=== PATIENT | male | born 1950 | race Caucasian/White ===

== ENCOUNTER 2023-04-17 17:09 | Inpatient (IN) ==
[2023-04-17] MEDS ORDERED: LEVOFLOXACIN 750 MG/150 ML BAG IV ONE (17:23)
[2023-04-17 17:31] LABS: POC Calcium, Ionized 1.21 (1.16-1.32); POC Creatinine 0.8 (0.6-1.2); POC Potassium 4.5 (3.3-5.1)
[2023-04-17] MEDS ORDERED: LORazepam 2 MG/ML VIAL IV ONE (17:34)
[2023-04-17 18:19] LABS: Basophils # (Auto) 0.19 K/mcL (0.00-0.30); Basophils % (Auto) 1.2 % (0.0-2.0); Eosinophils # (Auto) 1.43 K/mcL (0.00-0.70); Eosinophils % (Auto) 9.4 % (0.0-7.0); Hematocrit 42.8 % (40.1-51.0); Hemoglobin 13.5 g/dL (13.7-17.5); Lymphocytes # (Auto) 5.06 K/mcL (1.50-4.80); Lymphocytes % (Auto) 33.2 % (15.5-49.0); Mean Cell Volume 91.5 fL (80.0-100.0); Mean Corpuscular HGB Conc 31.5 g/dL (31.0-36.0); Monocytes # (Auto) 1.55 K/mcL (0.10-0.90); Monocytes % (Auto) 10.2 % (1.0-12.0); Neutrophils % (Auto) 45.7 % (38.0-78.0); Platelet Count 257 K/mcL (140-440); RBC 4.68 M/mcL (4.63-6.08); Red Cell Distribution Width 13.9 % (11.5-14.5); WBC 15.3 K/mcL (4.5-11.0)
[2023-04-17] MEDS ORDERED: ALBUTEROL SULFATE 2.5 MG/3 ML NEBULIZER NEB ONE (18:49)
[2023-04-17] MEDS ORDERED: DEXTROSE 50% 50 ML VIAL IV PRN (19:52)
[2023-04-17] MEDS ORDERED: POLYETHYLENE GLYCOL 3350 17 GM PACKET PO PRN (19:52)
[2023-04-17] MEDS ORDERED: ONDANSETRON 4 MG/2 ML VIAL IV PRN (19:52)
[2023-04-17] MEDS ORDERED: SENNOSIDES 1 TABLET PO PRN (19:52)
[2023-04-17] MEDS ORDERED: POTASSIUM CHLORIDE 20 MEQ TABLET PO PRN ×2 (19:52)
[2023-04-17] MEDS ORDERED: DEXTROSE 31 GM ORAL.SUSP PO PRN (19:52)
[2023-04-17] MEDS ORDERED: IPRATROPIUM/ALBUTEROL 3 ML AMPUL.NEB NEB PRN (19:52)
[2023-04-17] MEDS ORDERED: MAGNESIUM SULFATE 2 GM/50 ML BAG IV PRN (19:52)
[2023-04-17] MEDS ORDERED: ACETAMINOPHEN 325 MG TABLET PO PRN (19:52)
[2023-04-17] MEDS ORDERED: POTASSIUM CHLORIDE 40 MEQ in DEXTROSE 5% IN WATER 500 ML IV PRN (19:52)
[2023-04-17] MEDS: BUDESONIDE 0.5 MG/2 ML AMPUL.NEB NEB SCH (20:11)
[2023-04-17] MEDS ORDERED: AZITHROMYCIN 250 MG TABLET PO SCH (20:15)
[2023-04-17] MEDS ORDERED: DOCUSATE SODIUM 100 MG CAPSULE PO SCH (21:00)
[2023-04-17] MEDS: methylPREDNISolone SOD SUCC 125 MG/2 ML VIAL IV SCH (21:26)
[2023-04-17] MEDS: INSULIN LISPRO 1 UNIT/0.01 ML UNIT SQ SCH (21:28)
[2023-04-18] MEDS: methylPREDNISolone SOD SUCC 125 MG/2 ML VIAL IV SCH ×4 (00:33→21:13)
[2023-04-18] MEDS: IPRATROPIUM/ALBUTEROL 3 ML AMPUL.NEB NEB SCH ×4 (01:08→19:09)
[2023-04-18 06:08] LABS: Basophils # (Auto) 0.01 K/mcL (0.00-0.30); Basophils % (Auto) 0.1 % (0.0-2.0); Eosinophils # (Auto) 0 K/mcL (0.00-0.70); Eosinophils % (Auto) 0 % (0.0-7.0); Hematocrit 39.3 % (40.1-51.0); Hemoglobin 12.4 g/dL (13.7-17.5); Lymphocytes # (Auto) 0.73 K/mcL (1.50-4.80); Lymphocytes % (Auto) 10.1 % (15.5-49.0); Mean Cell Volume 89.5 fL (80.0-100.0); Mean Corpuscular HGB Conc 31.6 g/dL (31.0-36.0); Mean Platelet Volume 9.7 fL (8.8-12.5); Monocytes # (Auto) 0.08 K/mcL (0.10-0.90); Monocytes % (Auto) 1.1 % (1.0-12.0); Neutrophils % (Auto) 88.3 % (38.0-78.0); Platelet Count 233 K/mcL (140-440); RBC 4.39 M/mcL (4.63-6.08); Red Cell Distribution Width 13.8 % (11.5-14.5); WBC 7.2 K/mcL (4.5-11.0)
[2023-04-18 06:28] LABS: ALT/SGPT 7 U/L (<40); AST/SGOT 8 U/L (<40); Albumin/Globulin Ratio 1.5 (1.0-2.3); Alkaline Phosphatase 70 U/L (39-117); Bilirubin,Direct < 0.2 mg/dL (0-0.3); Bilirubin,Total 0.3 mg/dL (0.1-1.0); Blood Urea Nitrogen 26 mg/dL (8-23); Calcium 9.3 mg/dL (8.6-10.4); Carbon Dioxide 24 mmol/L (22-30); Chloride 106 mmol/L (96-108); Globulin 2.6 gm/dL (2.2-3.7); Glomerular Filtration Rate 88; Glucose 159 mg/dL (70-105); Lactate Dehydrogenase 87 U/L (135-225); Phosphorous 4.3 mg/dL (2.5-4.5); Triglycerides 41 mg/dL (<150); Uric Acid 5.6 mg/dL (2.5-8.0)
[2023-04-18] MEDS: BUDESONIDE 0.5 MG/2 ML AMPUL.NEB NEB SCH ×2 (07:05→19:09)
[2023-04-18] MEDS ORDERED: hydrOXYzine 25 MG TABLET PO PRN (07:30)
[2023-04-18] MEDS: INSULIN LISPRO 1 UNIT/0.01 ML UNIT SQ SCH ×4 (07:34→21:12)
[2023-04-18] MEDS: HYDROcodone/APAP 10/325MG TABLET PO SCH ×3 (08:21→21:13)
[2023-04-18] MEDS: ASPIRIN 81 MG TAB.CHEW PO SCH (08:21)
[2023-04-18] MEDS: LEVOFLOXACIN 750 MG TABLET PO SCH (08:21)
[2023-04-18] MEDS: ENOXAPARIN 40 MG/0.4 ML SYRINGE SQ SCH (08:21)
[2023-04-18] MEDS: FINASTERIDE 5 MG TABLET PO SCH (08:21)
[2023-04-18] MEDS ORDERED: AZITHROMYCIN 250 MG TABLET PO SCH (09:00)
[2023-04-18] MEDS ORDERED: fentaNYL 12 MCG PATCH TOPICAL SCH (10:00)
[2023-04-18] MEDS ORDERED: fentaNYL 25 MCG PATCH TOPICAL SCH (10:00)
[2023-04-18] MEDS: OMEPRAZOLE 20 MG CAPSULE PO SCH (10:53)
[2023-04-18] MEDS: PARoxetine 20 MG TABLET PO SCH (10:53)
[2023-04-18] MEDS: GABAPENTIN 300 MG CAPSULE PO SCH ×2 (14:38→21:12)
[2023-04-18] MEDS ORDERED: TAMSULOSIN 0.4 MG CAPSULE PO SCH (21:00)
[2023-04-18] MEDS ORDERED: ATORVASTATIN 20 MG TABLET PO SCH (21:00)
[2023-04-18] MEDS ORDERED: SENNOSIDES/DOCUSATE SODIUM 1 TAB TABLET PO SCH (21:00)
[2023-04-18] MEDS ORDERED: MELATONIN 3 MG TABLET PO SCH (21:00)
[2023-04-18] MEDS ORDERED: PRIMIDONE 50 MG TABLET PO SCH (21:00)
[2023-04-18] MEDS ORDERED: INSULIN GLARGINE, HUMAN 1 UNIT/0.01 ML SQ SCH (21:00)
[2023-04-19] MEDS: IPRATROPIUM/ALBUTEROL 3 ML AMPUL.NEB NEB SCH ×2 (01:00→07:05)
[2023-04-19] MEDS: methylPREDNISolone SOD SUCC 125 MG/2 ML VIAL IV SCH (06:39)
[2023-04-19] MEDS: BUDESONIDE 0.5 MG/2 ML AMPUL.NEB NEB SCH (07:05)
[2023-04-19] MEDS: OMEPRAZOLE 20 MG CAPSULE PO SCH (07:37)
[2023-04-19] MEDS: INSULIN LISPRO 1 UNIT/0.01 ML UNIT SQ SCH (07:38)
[2023-04-19] MEDS: ENOXAPARIN 40 MG/0.4 ML SYRINGE SQ SCH (09:24)
[2023-04-19] MEDS: LEVOFLOXACIN 750 MG TABLET PO SCH (09:24)
[2023-04-19] MEDS: GABAPENTIN 300 MG CAPSULE PO SCH (09:25)
[2023-04-19] MEDS: PARoxetine 20 MG TABLET PO SCH (09:25)
[2023-04-19] MEDS: FINASTERIDE 5 MG TABLET PO SCH (09:26)
[2023-04-19] MEDS: HYDROcodone/APAP 10/325MG TABLET PO SCH (09:26)
[2023-04-19] MEDS: ASPIRIN 81 MG TAB.CHEW PO SCH (09:29)
== END 2023-04-19 11:46 | disposition home or self-care (01) | DRG 189 ==
LOC: ED 17:09 → ICU 19:54
PROVIDERS: ADMIT Internal Medicine; ATTEND Internal Medicine

== ENCOUNTER 2023-06-14 19:23 | Inpatient (IN) ==
[2023-06-14] MEDS ORDERED: IPRATROPIUM/ALBUTEROL 3 ML AMPUL.NEB NEB ONE ×2 (19:38→21:28)
[2023-06-14 20:00] LABS: POC Calcium, Ionized 1.11 (1.16-1.32); POC Creatinine 0.6 (0.6-1.2); POC Potassium 4.4 (3.3-5.1)
[2023-06-14 20:12] LABS: Basophils # (Auto) 0.08 K/mcL (0.00-0.30); Basophils % (Auto) 0.7 % (0.0-2.0); Eosinophils % (Auto) 8.3 % (0.0-7.0); Hemoglobin 12.7 g/dL (13.7-17.5); Lymphocytes % (Auto) 27.6 % (15.5-49.0); Mean Cell Volume 90.5 fL (80.0-100.0); Mean Corpuscular HGB Conc 31.8 g/dL (31.0-36.0); Mean Platelet Volume 9.6 fL (8.8-12.5); Monocytes # (Auto) 0.99 K/mcL (0.10-0.90); Monocytes % (Auto) 9.1 % (1.0-12.0); Neutrophils % (Auto) 54.2 % (38.0-78.0); Platelet Count 219 K/mcL (140-440); RBC 4.42 M/mcL (4.63-6.08); Red Cell Distribution Width 13.6 % (11.5-14.5); WBC 10.9 K/mcL (4.5-11.0)
[2023-06-14 20:38] LABS: ALT/SGPT 6 U/L (<40); AST/SGOT 13 U/L (<40); Albumin 4.1 gm/dL (3.2-5.2); Alkaline Phosphatase 72 U/L (39-117); Bilirubin,Direct < 0.2 mg/dL (0-0.3); Bilirubin,Total < 0.2 mg/dL (0.1-1.0); Globulin 2.8 gm/dL (2.2-3.7)
[2023-06-14] MEDS ORDERED: MAGNESIUM SULFATE 1 GM/100 ML BAG IV ONE (21:31)
[2023-06-14] MEDS ORDERED: MAGNESIUM SULFATE 2 GM/50 ML BAG IV ONE (21:46)
[2023-06-14] MEDS ORDERED: ALBUTEROL SULFATE 2.5 MG/3 ML NEBULIZER NEB ONE (23:23)
[2023-06-15] MEDS ORDERED: AZITHROMYCIN 500 MG VIAL IV ONE (01:40)
[2023-06-15] MEDS ORDERED: ACETAMINOPHEN 325 MG TABLET PO PRN (05:52)
[2023-06-15] MEDS ORDERED: LACTATED RINGERS 1,000 ML IV ONE (06:28)
[2023-06-15] MEDS ORDERED: DEXTROSE 50% 50 ML VIAL IV PRN (06:29)
[2023-06-15] MEDS ORDERED: DEXTROSE 31 GM ORAL.SUSP PO PRN (06:29)
[2023-06-15] MEDS ORDERED: IPRATROPIUM/ALBUTEROL 3 ML AMPUL.NEB NEB ONE (06:37)
[2023-06-15] MEDS: IPRATROPIUM/ALBUTEROL 3 ML AMPUL.NEB NEB SCH ×4 (06:42→19:18)
[2023-06-15 06:46] LABS: Basophils # (Auto) 0.02 K/mcL (0.00-0.30); Basophils % (Auto) 0.2 % (0.0-2.0); Eosinophils # (Auto) 0 K/mcL (0.00-0.70); Eosinophils % (Auto) 0 % (0.0-7.0); Hematocrit 39.9 % (40.1-51.0); Hemoglobin 12.6 g/dL (13.7-17.5); Lymphocytes # (Auto) 0.77 K/mcL (1.50-4.80); Lymphocytes % (Auto) 7.9 % (15.5-49.0); Mean Cell Volume 90.5 fL (80.0-100.0); Mean Corpuscular HGB Conc 31.6 g/dL (31.0-36.0); Mean Platelet Volume 9.7 fL (8.8-12.5); Monocytes # (Auto) 0.22 K/mcL (0.10-0.90); Monocytes % (Auto) 2.2 % (1.0-12.0); Neutrophils % (Auto) 89.5 % (38.0-78.0); Platelet Count 229 K/mcL (140-440); RBC 4.41 M/mcL (4.63-6.08); Red Cell Distribution Width 13.4 % (11.5-14.5); WBC 9.8 K/mcL (4.5-11.0)
[2023-06-15] MEDS ORDERED: methylPREDNISolone SOD SUCC 125 MG/2 ML VIAL IV SCH (07:00)
[2023-06-15] MEDS ORDERED: IPRATROPIUM/ALBUTEROL 3 ML AMPUL.NEB NEB SCH (07:00)
[2023-06-15 07:11] LABS: Blood Urea Nitrogen 20 mg/dL (8-23); Calcium 9.2 mg/dL (8.6-10.4); Carbon Dioxide 24 mmol/L (22-30); Chloride 102 mmol/L (96-108); Glomerular Filtration Rate 93; Glucose 266 mg/dL (70-105)
[2023-06-15] MEDS: INSULIN LISPRO 1 UNIT/0.01 ML UNIT SQ SCH ×4 (07:11→21:19)
[2023-06-15] MEDS ORDERED: guaiFENesin 600 MG TAB.SR.12H PO PRN (07:47)
[2023-06-15] MEDS: GABAPENTIN 300 MG CAPSULE PO SCH ×3 (09:15→21:19)
[2023-06-15] MEDS: ASPIRIN 81 MG TAB.CHEW PO SCH (09:15)
[2023-06-15] MEDS: PARoxetine 20 MG TABLET PO SCH (09:15)
[2023-06-15] MEDS: HYDROcodone/APAP 10/325MG TABLET PO SCH ×3 (09:15→21:21)
[2023-06-15] MEDS: methylPREDNISolone SOD SUCC 125 MG/2 ML VIAL IV SCH ×2 (09:15→21:19)
[2023-06-15] MEDS: ENOXAPARIN 40 MG/0.4 ML SYRINGE SQ SCH (09:15)
[2023-06-15] MEDS: OMEPRAZOLE 20 MG CAPSULE PO SCH (09:16)
[2023-06-15] MEDS: FINASTERIDE 5 MG TABLET PO SCH (09:16)
[2023-06-15] MEDS: ALBUTEROL SULFATE 2.5 MG/3 ML NEBULIZER NEB PRN ×2 (16:45→21:35)
[2023-06-15] MEDS ORDERED: INSULIN GLARGINE, HUMAN 1 UNIT/0.01 ML SQ SCH (21:00)
[2023-06-15] MEDS: PRIMIDONE 50 MG TABLET PO SCH (21:20)
[2023-06-15] MEDS: MELATONIN 3 MG TABLET PO SCH (21:20)
[2023-06-15] MEDS: TAMSULOSIN 0.4 MG CAPSULE PO SCH (21:21)
[2023-06-15] MEDS: ATORVASTATIN 20 MG TABLET PO SCH (21:21)
[2023-06-15] MEDS: traZODone HCL 100 MG TABLET PO SCH (21:22)
[2023-06-16] MEDS: IPRATROPIUM/ALBUTEROL 3 ML AMPUL.NEB NEB SCH ×7 (00:15→22:04)
[2023-06-16] MEDS ORDERED: AZITHROMYCIN 500 MG in DEXTROSE 5% IN WATER 250 ML IV SCH (01:00)
[2023-06-16] MEDS: ALBUTEROL SULFATE 2.5 MG/3 ML NEBULIZER NEB PRN (02:10)
[2023-06-16 06:55] LABS: ALT/SGPT 8 U/L (<40); AST/SGOT 9 U/L (<40); Albumin 3.9 gm/dL (3.2-5.2); Albumin/Globulin Ratio 1.6 (1.0-2.3); Alkaline Phosphatase 66 U/L (39-117); Bilirubin,Direct < 0.2 mg/dL (0-0.3); Bilirubin,Total 0.2 mg/dL (0.1-1.0); Blood Urea Nitrogen 25 mg/dL (8-23); Calcium 9.3 mg/dL (8.6-10.4); Carbon Dioxide 26 mmol/L (22-30); Chloride 104 mmol/L (96-108); Globulin 2.4 gm/dL (2.2-3.7); Glomerular Filtration Rate 93; Glucose 272 mg/dL (70-105); Lactate Dehydrogenase 101 U/L (135-225); Triglycerides 119 mg/dL (<150); Uric Acid 4.1 mg/dL (2.5-8.0)
[2023-06-16] MEDS: OMEPRAZOLE 20 MG CAPSULE PO SCH (07:52)
[2023-06-16] MEDS: INSULIN LISPRO 1 UNIT/0.01 ML UNIT SQ SCH ×4 (07:58→20:55)
[2023-06-16] MEDS: PARoxetine 20 MG TABLET PO SCH (08:14)
[2023-06-16] MEDS: FINASTERIDE 5 MG TABLET PO SCH (08:14)
[2023-06-16] MEDS: HYDROcodone/APAP 10/325MG TABLET PO SCH ×3 (08:15→20:58)
[2023-06-16] MEDS: GABAPENTIN 300 MG CAPSULE PO SCH ×3 (08:15→20:57)
[2023-06-16] MEDS: ENOXAPARIN 40 MG/0.4 ML SYRINGE SQ SCH (08:16)
[2023-06-16] MEDS: ASPIRIN 81 MG TAB.CHEW PO SCH (08:16)
[2023-06-16] MEDS: methylPREDNISolone SOD SUCC 40 MG/ML VIAL IV SCH ×2 (08:24→20:55)
[2023-06-16] MEDS: MELATONIN 3 MG TABLET PO SCH (20:57)
[2023-06-16] MEDS: traZODone HCL 100 MG TABLET PO SCH (20:57)
[2023-06-16] MEDS: ATORVASTATIN 20 MG TABLET PO SCH (20:57)
[2023-06-16] MEDS: PRIMIDONE 50 MG TABLET PO SCH (20:57)
[2023-06-16] MEDS: TAMSULOSIN 0.4 MG CAPSULE PO SCH (20:57)
[2023-06-16] MEDS ORDERED: INSULIN GLARGINE, HUMAN 1 UNIT/0.01 ML SQ SCH (21:00)
[2023-06-17] MEDS: IPRATROPIUM/ALBUTEROL 3 ML AMPUL.NEB NEB SCH ×4 (02:36→12:56)
[2023-06-17 07:16] LABS: ALT/SGPT < 5 U/L (<40); AST/SGOT 11 U/L (<40); Albumin/Globulin Ratio 1.5 (1.0-2.3); Alkaline Phosphatase 65 U/L (39-117); Bilirubin,Direct < 0.2 mg/dL (0-0.3); Bilirubin,Total 0.3 mg/dL (0.1-1.0); Blood Urea Nitrogen 28 mg/dL (8-23); Calcium 9.2 mg/dL (8.6-10.4); Carbon Dioxide 22 mmol/L (22-30); Chloride 101 mmol/L (96-108); Globulin 2.6 gm/dL (2.2-3.7); Glomerular Filtration Rate 93; Glucose 213 mg/dL (70-105); Lactate Dehydrogenase 107 U/L (135-225); Phosphorous 3.6 mg/dL (2.5-4.5); Triglycerides 109 mg/dL (<150); Uric Acid 3.7 mg/dL (2.5-8.0)
[2023-06-17] MEDS: INSULIN LISPRO 1 UNIT/0.01 ML UNIT SQ SCH ×2 (08:06→12:12)
[2023-06-17] MEDS: OMEPRAZOLE 20 MG CAPSULE PO SCH (08:09)
[2023-06-17] MEDS: PARoxetine 20 MG TABLET PO SCH (08:39)
[2023-06-17] MEDS: FINASTERIDE 5 MG TABLET PO SCH (08:39)
[2023-06-17] MEDS: ENOXAPARIN 40 MG/0.4 ML SYRINGE SQ SCH (08:40)
[2023-06-17] MEDS: ASPIRIN 81 MG TAB.CHEW PO SCH (08:40)
[2023-06-17] MEDS: HYDROcodone/APAP 10/325MG TABLET PO SCH ×2 (08:40→14:41)
[2023-06-17] MEDS: GABAPENTIN 300 MG CAPSULE PO SCH ×2 (08:40→14:41)
[2023-06-17] MEDS ORDERED: predniSONE 20 MG TABLET PO SCH (09:00)
[2023-06-17] MEDS ORDERED: fentaNYL 25 MCG PATCH TOPICAL SCH (10:00)
[2023-06-18] MEDS ORDERED: fentaNYL 25 MCG PATCH TOPICAL SCH (10:00)
== END 2023-06-17 14:51 | DRG 191 ==
LOC: ED 19:23 → MEDSUR 06-15 02:47
PROVIDERS: ADMIT Internal Medicine; ATTEND Internal Medicine

== ENCOUNTER 2024-01-16 22:58 | Inpatient (IN) ==
[2024-01-16] MEDS: IPRATROPIUM/ALBUTEROL 3 ML AMPUL.NEB NEB ONE ×2 (23:15)
[2024-01-16 23:35] LABS: Basophils # (Auto) 0.07 K/mcL (0.00-0.30); Basophils % (Auto) 0.6 % (0.0-2.0); Eosinophils # (Auto) 0.71 K/mcL (0.00-0.70); Eosinophils % (Auto) 6.2 % (0.0-7.0); Hematocrit 44.9 % (40.1-51.0); Hemoglobin 14.1 g/dL (13.7-17.5); Lymphocytes % (Auto) 37.4 % (15.5-49.0); Mean Cell Volume 92.8 fL (80.0-100.0); Mean Corpuscular HGB Conc 31.4 g/dL (31.0-36.0); Mean Platelet Volume 9.6 fL (8.8-12.5); Monocytes % (Auto) 10.4 % (1.0-12.0); Neutrophils % (Auto) 45.1 % (38.0-78.0); Platelet Count 243 K/mcL (140-440); RBC 4.84 M/mcL (4.63-6.08); Red Cell Distribution Width 13.9 % (11.5-14.5); WBC 11.5 K/mcL (4.5-11.0)
[2024-01-16] MEDS: MAGNESIUM SULFATE 2 GM/50 ML BAG IV ONE (23:43)
[2024-01-16 23:51] LABS: Blood Urea Nitrogen 19 mg/dL (8-23); Calcium 9.1 mg/dL (8.6-10.4); Carbon Dioxide 28 mmol/L (22-30); Chloride 103 mmol/L (96-108); Glomerular Filtration Rate 74; Glucose 231 mg/dL (70-105); Potassium 4.5 mmol/L (3.3-5.1); Sodium 141 mmol/L (133-145)
[2024-01-17] MEDS ORDERED: DEXTROSE 50% 50 ML VIAL IV PRN (00:42)
[2024-01-17] MEDS ORDERED: ONDANSETRON 4 MG/2 ML VIAL IV PRN ×2 (00:42→07:33)
[2024-01-17] MEDS ORDERED: ACETAMINOPHEN 325 MG TABLET PO PRN ×2 (00:42→07:33)
[2024-01-17] MEDS ORDERED: DEXTROSE 31 GM ORAL.SUSP PO PRN (00:42)
[2024-01-17 06:19] LABS: ABG Methemoglobin 0.1 % (0.4-1.5); Total Hemoglobin 14.4 gm/Dl (13.5-16.5); VBG Base Excess 0 (-2-3); VBG HCO3 23.5 mmol/L (24.0-28.0); VBG Oxygen Saturation 93.9 % (40.0-70.0); VBG PCO2 36.3 mmHg (41.0-51.0); VBG PH 7.43 U (7.32-7.42); VBG PO2 141.2 mmHg (25.0-40.0); VBG Total CO2 24.6 mmol/L (25.0-29.0)
[2024-01-17 06:28] LABS: Basophils # (Auto) 0.02 K/mcL (0.00-0.30); Basophils % (Auto) 0.3 % (0.0-2.0); Eosinophils # (Auto) 0.01 K/mcL (0.00-0.70); Eosinophils % (Auto) 0.1 % (0.0-7.0); Hematocrit 42.9 % (40.1-51.0); Hemoglobin 13.6 g/dL (13.7-17.5); Lymphocytes % (Auto) 9.8 % (15.5-49.0); Mean Cell Volume 92.1 fL (80.0-100.0); Mean Corpuscular HGB Conc 31.7 g/dL (31.0-36.0); Mean Platelet Volume 9.5 fL (8.8-12.5); Monocytes # (Auto) 0.08 K/mcL (0.10-0.90); Monocytes % (Auto) 1.1 % (1.0-12.0); Neutrophils % (Auto) 88.4 % (38.0-78.0); Platelet Count 221 K/mcL (140-440); RBC 4.66 M/mcL (4.63-6.08); Red Cell Distribution Width 13.9 % (11.5-14.5); WBC 7.2 K/mcL (4.5-11.0)
[2024-01-17 07:17] LABS: ALT/SGPT 6 U/L (<40); AST/SGOT 14 U/L (<40); Albumin 4.2 gm/dL (3.2-5.2); Albumin/Globulin Ratio 1.7 (1.0-2.3); Alkaline Phosphatase 83 U/L (39-117); Bilirubin,Direct < 0.2 mg/dL (0-0.3); Bilirubin,Total 0.3 mg/dL (0.1-1.0); Blood Urea Nitrogen 20 mg/dL (8-23); Calcium 9.1 mg/dL (8.6-10.4); Carbon Dioxide 25 mmol/L (22-30); Chloride 102 mmol/L (96-108); Globulin 2.5 gm/dL (2.2-3.7); Glomerular Filtration Rate 74; Glucose 316 mg/dL (70-105); Lactate Dehydrogenase 125 U/L (135-225); Phosphorous 3.5 mg/dL (2.5-4.5); Sodium 140 mmol/L (133-145); Triglycerides 64 mg/dL (<150); Uric Acid 4.8 mg/dL (2.5-8.0)
[2024-01-17] MEDS ORDERED: SENNOSIDES 1 TABLET PO PRN (07:33)
[2024-01-17] MEDS ORDERED: LACTULOSE 20 GM/30 ML ORAL.SOL PO PRN (07:33)
[2024-01-17] MEDS: IPRATROPIUM/ALBUTEROL 3 ML AMPUL.NEB NEB SCH (07:34)
[2024-01-17] MEDS: DOCUSATE SODIUM 100 MG CAPSULE PO SCH (08:56)
[2024-01-17] MEDS: methylPREDNISolone SOD SUCC 125 MG/2 ML VIAL IV SCH (08:57)
[2024-01-17] MEDS: cefTRIAXone 1 GM VIAL IV SCH (08:58)
[2024-01-17] MEDS: INSULIN GLARGINE, HUMAN 1 UNIT/0.01 ML SQ SCH (08:58)
[2024-01-17] MEDS: ENOXAPARIN 40 MG/0.4 ML SYRINGE SQ SCH (09:01)
[2024-01-17] MEDS: INSULIN LISPRO 1 UNIT/0.01 ML UNIT SQ SCH ×2 (09:02→10:44)
[2024-01-17 10:23] LABS: ABG Methemoglobin 0.2 % (0.4-1.5); Total Hemoglobin 14.6 gm/Dl (13.5-16.5); VBG Base Excess 0 (-2-3); VBG HCO3 26.3 mmol/L (24.0-28.0); VBG Oxygen Saturation 90.1 % (40.0-70.0); VBG PCO2 49.5 mmHg (41.0-51.0); VBG PH 7.34 U (7.32-7.42); VBG PO2 68.1 mmHg (25.0-40.0); VBG Total CO2 27.8 mmol/L (25.0-29.0)
[2024-01-17] MEDS: 0.9 % SODIUM CHLORIDE 10 ML SYRINGE IV SCH (14:59)
[2024-01-17] MEDS: NICOTINE SL PRN (18:12)
[2024-01-17 18:29] LABS: ABG Methemoglobin 0 % (0.4-1.5); Total Hemoglobin 14.7 gm/Dl (13.5-16.5); VBG Base Excess -2 (-2-3); VBG HCO3 23.1 mmol/L (24.0-28.0); VBG Oxygen Saturation 82.7 % (40.0-70.0); VBG PCO2 42.5 mmHg (41.0-51.0); VBG PH 7.35 U (7.32-7.42); VBG PO2 49.2 mmHg (25.0-40.0); VBG Total CO2 24.4 mmol/L (25.0-29.0)
[2024-01-17] MEDS ORDERED: INSULIN GLARGINE, HUMAN 1 UNIT/0.01 ML SQ SCH (21:00)
[2024-01-18 05:46] LABS: Basophils # (Auto) 0.01 K/mcL (0.00-0.30); Basophils % (Auto) 0.1 % (0.0-2.0); Eosinophils # (Auto) 0 K/mcL (0.00-0.70); Eosinophils % (Auto) 0 % (0.0-7.0); Hematocrit 42.6 % (40.1-51.0); Hemoglobin 13.7 g/dL (13.7-17.5); Lymphocytes # (Auto) 1.46 K/mcL (1.50-4.80); Lymphocytes % (Auto) 8.6 % (15.5-49.0); Mean Cell Volume 90.3 fL (80.0-100.0); Mean Corpuscular HGB Conc 32.2 g/dL (31.0-36.0); Mean Platelet Volume 9.7 fL (8.8-12.5); Monocytes # (Auto) 0.89 K/mcL (0.10-0.90); Monocytes % (Auto) 5.2 % (1.0-12.0); Neutrophils % (Auto) 85.8 % (38.0-78.0); Platelet Count 241 K/mcL (140-440); RBC 4.72 M/mcL (4.63-6.08); Red Cell Distribution Width 13.7 % (11.5-14.5)
[2024-01-18 06:33] LABS: ALT/SGPT < 5 U/L (<40); AST/SGOT 11 U/L (<40); Albumin 4.2 gm/dL (3.2-5.2); Albumin/Globulin Ratio 1.8 (1.0-2.3); Alkaline Phosphatase 76 U/L (39-117); Bilirubin,Direct < 0.2 mg/dL (0-0.3); Bilirubin,Total 0.3 mg/dL (0.1-1.0); Blood Urea Nitrogen 28 mg/dL (8-23); Calcium 9.2 mg/dL (8.6-10.4); Carbon Dioxide 24 mmol/L (22-30); Chloride 101 mmol/L (96-108); Globulin 2.3 gm/dL (2.2-3.7); Glomerular Filtration Rate 84; Glucose 155 mg/dL (70-105); Lactate Dehydrogenase 90 U/L (135-225); Phosphorous 3.9 mg/dL (2.5-4.5); Potassium 4.6 mmol/L (3.3-5.1); Sodium 139 mmol/L (133-145); Triglycerides 115 mg/dL (<150); Uric Acid 4.9 mg/dL (2.5-8.0)
[2024-01-18] MEDS ORDERED: TIOTROPIUM BROMIDE 18 MCG INHALANT INH SCH (09:00)
[2024-01-18] MEDS ORDERED: FLUTICASONE/SALMETEROL 250/50 INHALER #14 INH SCH (09:00)
[2024-01-18] MEDS: ALBUTEROL SULFATE 2.5 MG/3 ML NEBULIZER NEB PRN (11:54)
== END 2024-01-18 13:47 | disposition home health service (06) | DRG 191 ==
LOC: ED 22:58 → ICU 01-17 02:48
PROVIDERS: ADMIT Internal Medicine; ATTEND Internal Medicine

== ENCOUNTER 2024-02-13 03:21 | Observation (INO) ==
[2024-02-13] MEDS ORDERED: IOPAMIDOL 100 ML BOTTLE IV ONE (03:22)
[2024-02-13] MEDS: 0.9 % SODIUM CHLORIDE 1,000 ML IV ONE ×2 (03:53→04:18)
[2024-02-13] MEDS: IPRATROPIUM/ALBUTEROL 3 ML AMPUL.NEB NEB ONE (03:53)
[2024-02-13] MEDS: ONDANSETRON 4 MG/2 ML VIAL IV ONE (03:53)
[2024-02-13 03:57] LABS: Basophils # (Auto) 0.01 K/mcL (0.00-0.30); Basophils % (Auto) 0.1 % (0.0-2.0); Eosinophils # (Auto) 0.18 K/mcL (0.00-0.70); Eosinophils % (Auto) 2.4 % (0.0-7.0); Hematocrit 37.7 % (40.1-51.0); Hemoglobin 12.1 g/dL (13.7-17.5); Lymphocytes # (Auto) 0.91 K/mcL (1.50-4.80); Lymphocytes % (Auto) 12.1 % (15.5-49.0); Mean Cell Volume 92.6 fL (80.0-100.0); Mean Corpuscular HGB Conc 32.1 g/dL (31.0-36.0); Mean Platelet Volume 9.3 fL (8.8-12.5); Monocytes # (Auto) 0.71 K/mcL (0.10-0.90); Monocytes % (Auto) 9.5 % (1.0-12.0); Neutrophils % (Auto) 75.6 % (38.0-78.0); Platelet Count 216 K/mcL (140-440); RBC 4.07 M/mcL (4.63-6.08); Red Cell Distribution Width 13.9 % (11.5-14.5); WBC 7.5 K/mcL (4.5-11.0)
[2024-02-13 04:23] LABS: ALT/SGPT 7 U/L (<40); AST/SGOT 9 U/L (<40); Albumin 3.4 gm/dL (3.2-5.2); Albumin/Globulin Ratio 1.7 (1.0-2.3); Alkaline Phosphatase 61 U/L (39-117); Bilirubin,Total 0.2 mg/dL (0.1-1.0); Blood Urea Nitrogen 28 mg/dL (8-23); Calcium 7.6 mg/dL (8.6-10.4); Carbon Dioxide 22 mmol/L (22-30); Chloride 107 mmol/L (96-108); Glomerular Filtration Rate 54; Glucose 223 mg/dL (70-105); Potassium 4.9 mmol/L (3.3-5.1); Sodium 139 mmol/L (133-145)
[2024-02-13] MEDS: NOREPINEPHRINE 250 ML IV SCH (04:40)
[2024-02-13] MEDS: 0.9 % SODIUM CHLORIDE 250 ML IV SCH (05:07)
[2024-02-13] MEDS: AZITHROMYCIN 500 MG in DEXTROSE 5% IN WATER 250 ML IV ONE (05:30)
[2024-02-13] MEDS: cefTRIAXone 2 GM in DEXTROSE 5% IN WATER 50 ML IV ONE (05:35)
[2024-02-13 06:38] LABS: Appearance,Urine Clear (Clear); Bilirubin,Urine Negative (Negative); Color,Urine Yellow; Glucose,Urine (UA) 500 mg/dL (Negative); Ketones,Urine Negative (Negative); Leukocyte Esterase,Urine Negative /uL (Negative); Nitrate,Urine Negative (Negative); PH,Urine 5.5 (5.0-9.0); Protein,Urine Negative (Negative); Specific Gravity,Urine <= 1.005 (1.000-1.035); Urine Blood Negative ery/mcL (Negative); Urine RBC 0 /hpf (0-3); Urine Squamous Epithelial Cell 0 /hpf (0-4); Urine WBC 1 /hpf (0-4); Urobilinogen,Urine Normal
[2024-02-13] MEDS: NALOXONE HCL 0.4 MG/ML VIAL IV ONE ×2 (07:54→09:28)
[2024-02-13 09:16] LABS: Amphetamine Screen,Urine None detected; Barbiturate Screen,Urine Suspect positive; Benzodiazepines Screen,Urine None detected; Cannabinoid Screen,Urine None detected; Cocaine Screen,Urine None detected; Fentanyl, Urine Screen Suspect Positive; Opiate Screen,Urine Suspect Positive; Oxycodone, Urine Screen None detected; Phencyclidine Screen,Urine None detected
[2024-02-13] MEDS: NALOXONE HCL 1 MG in 0.9 % SODIUM CHLORIDE 250 ML IV SCH (10:08)
[2024-02-13 13:00] LABS: ABG Methemoglobin 0.3 % (0.4-1.5); Total Hemoglobin 13.9 gm/Dl (13.5-16.5); VBG Base Excess -2 (-2-3); VBG HCO3 23.2 mmol/L (24.0-28.0); VBG Oxygen Saturation 91.2 % (40.0-70.0); VBG PCO2 42.3 mmHg (41.0-51.0); VBG PH 7.36 U (7.32-7.42); VBG PO2 90.9 mmHg (25.0-40.0); VBG Total CO2 24.5 mmol/L (25.0-29.0)
[2024-02-13] MEDS ORDERED: LACTULOSE 20 GM/30 ML ORAL.SOL PO PRN (13:15)
[2024-02-13] MEDS ORDERED: ALBUTEROL SULFATE 2.5 MG/3 ML NEBULIZER NEB PRN (13:15)
[2024-02-13] MEDS ORDERED: ONDANSETRON 4 MG/2 ML VIAL IV PRN (13:15)
[2024-02-13] MEDS ORDERED: SENNOSIDES 1 TABLET PO PRN (13:15)
[2024-02-13] MEDS: IPRATROPIUM/ALBUTEROL 3 ML AMPUL.NEB NEB SCH (13:35)
[2024-02-13 14:10] LABS: ALT/SGPT 7 U/L (<40); AST/SGOT 12 U/L (<40); Albumin 3.7 gm/dL (3.2-5.2); Albumin/Globulin Ratio 1.6 (1.0-2.3); Alkaline Phosphatase 66 U/L (39-117); Bilirubin,Direct < 0.2 mg/dL (0-0.3); Bilirubin,Total 0.3 mg/dL (0.1-1.0); Blood Urea Nitrogen 22 mg/dL (8-23); Calcium 8.1 mg/dL (8.6-10.4); Carbon Dioxide 24 mmol/L (22-30); Chloride 110 mmol/L (96-108); Globulin 2.3 gm/dL (2.2-3.7); Glomerular Filtration Rate 74; Glucose 108 mg/dL (70-105); Lactate Dehydrogenase 87 U/L (135-225); Phosphorous 2.9 mg/dL (2.5-4.5); Potassium 4.3 mmol/L (3.3-5.1); Sodium 142 mmol/L (133-145); Thyroid Stimulating Hormone 0.38 uIU/mL (0.27-5.01); Triglycerides 140 mg/dL (<150); Uric Acid 5.6 mg/dL (2.5-8.0)
[2024-02-13] MEDS: 0.9 % SODIUM CHLORIDE 1,000 ML IV SCH (14:22)
[2024-02-13] MEDS: 0.9 % SODIUM CHLORIDE 10 ML SYRINGE IV SCH (14:26)
[2024-02-13] MEDS: HEPARIN 5,000 UNIT/ML VIAL SQ SCH (20:26)
[2024-02-13] MEDS: DOCUSATE SODIUM 100 MG CAPSULE PO SCH (20:26)
[2024-02-14 05:54] LABS: Basophils # (Auto) 0.02 K/mcL (0.00-0.30); Basophils % (Auto) 0.3 % (0.0-2.0); Eosinophils % (Auto) 3.1 % (0.0-7.0); Hematocrit 38.9 % (40.1-51.0); Hemoglobin 12.7 g/dL (13.7-17.5); Lymphocytes # (Auto) 2.01 K/mcL (1.50-4.80); Lymphocytes % (Auto) 31.3 % (15.5-49.0); Mean Cell Volume 92.4 fL (80.0-100.0); Mean Corpuscular HGB Conc 32.6 g/dL (31.0-36.0); Mean Platelet Volume 9.7 fL (8.8-12.5); Monocytes # (Auto) 0.71 K/mcL (0.10-0.90); Monocytes % (Auto) 11.1 % (1.0-12.0); Platelet Count 231 K/mcL (140-440); RBC 4.21 M/mcL (4.63-6.08); Red Cell Distribution Width 13.6 % (11.5-14.5); WBC 6.4 K/mcL (4.5-11.0)
[2024-02-14 06:16] LABS: ALT/SGPT 7 U/L (<40); AST/SGOT 13 U/L (<40); Albumin 3.4 gm/dL (3.2-5.2); Albumin/Globulin Ratio 1.5 (1.0-2.3); Alkaline Phosphatase 60 U/L (39-117); Bilirubin,Direct < 0.2 mg/dL (0-0.3); Bilirubin,Total 0.3 mg/dL (0.1-1.0); Blood Urea Nitrogen 18 mg/dL (8-23); Carbon Dioxide 22 mmol/L (22-30); Chloride 111 mmol/L (96-108); Globulin 2.2 gm/dL (2.2-3.7); Glomerular Filtration Rate 93; Glucose 100 mg/dL (70-105); Lactate Dehydrogenase 94 U/L (135-225); Sodium 142 mmol/L (133-145); Triglycerides 197 mg/dL (<150)
[2024-02-14] MEDS ORDERED: DEXTROSE 50% 50 ML VIAL IV PRN (07:11)
[2024-02-14] MEDS ORDERED: DEXTROSE 31 GM ORAL.SUSP PO PRN (07:11)
[2024-02-14] MEDS ORDERED: DEXTROSE 50% 50 ML SYRINGE IV PRN (07:18)
[2024-02-14] MEDS: INSULIN LISPRO 1 UNIT/0.01 ML UNIT SQ SCH (07:30)
[2024-02-14] MEDS ORDERED: guaiFENesin 600 MG TAB.SR.12H PO PRN (07:31)
[2024-02-14] MEDS ORDERED: hydrOXYzine 25 MG TABLET PO PRN (07:31)
[2024-02-14] MEDS ORDERED: HYDROcodone/APAP 10/325MG TABLET PO SCH (07:45)
[2024-02-14] MEDS: MULTIVIT,THER IRON,CA,FA & MIN 1 TABLET PO SCH (08:10)
[2024-02-14] MEDS: PARoxetine 20 MG TABLET PO SCH (08:11)
[2024-02-14] MEDS: MAGNESIUM OXIDE 400 MG TABLET PO SCH (08:12)
[2024-02-14] MEDS: OMEPRAZOLE 20 MG CAPSULE PO SCH (08:12)
[2024-02-14] MEDS: buPROPion 150 MG TAB.XL.24H PO SCH (08:12)
[2024-02-14] MEDS: FLUTICASONE/SALMETEROL 250/50 INHALER #14 INH SCH (08:12)
[2024-02-14] MEDS: FINASTERIDE 5 MG TABLET PO SCH (08:12)
[2024-02-14] MEDS: ASPIRIN 81 MG TAB.CHEW PO SCH (08:12)
[2024-02-14] MEDS: ENOXAPARIN 40 MG/0.4 ML SYRINGE SQ SCH (08:12)
[2024-02-14] MEDS: Umeclidinium [Incruse Ellipta] 62.5 mcg/actuation INH SCH (08:13)
[2024-02-14] MEDS: POLYETHYLENE GLYCOL 3350 17 GM PACKET PO SCH (08:13)
[2024-02-14] MEDS: cefTRIAXone 1 GM VIAL IV SCH (08:13)
[2024-02-14] MEDS: AZITHROMYCIN 500 MG in DEXTROSE 5% IN WATER 250 ML IV SCH (08:53)
[2024-02-14] MEDS ORDERED: ACETAMINOPHEN 325 MG TABLET PO PRN (09:07)
[2024-02-14] MEDS: FERROUS GLUCONATE 324 MG TABLET PO SCH (10:07)
[2024-02-14] MEDS ORDERED: HYDROcodone/APAP 5/325MG TABLET PO PRN (10:19)
[2024-02-14] MEDS: TAMSULOSIN 0.4 MG CAPSULE PO SCH (20:04)
[2024-02-14] MEDS: MELATONIN 3 MG TABLET PO SCH (20:04)
[2024-02-14] MEDS: ATORVASTATIN 20 MG TABLET PO SCH (20:05)
[2024-02-14] MEDS: traZODone HCL 100 MG TABLET PO SCH (20:05)
[2024-02-14] MEDS: PRIMIDONE 50 MG TABLET PO SCH (20:09)
[2024-02-15 06:01] LABS: Basophils # (Auto) 0.02 K/mcL (0.00-0.30); Basophils % (Auto) 0.3 % (0.0-2.0); Eosinophils # (Auto) 0.17 K/mcL (0.00-0.70); Eosinophils % (Auto) 2.3 % (0.0-7.0); Hemoglobin 13.1 g/dL (13.7-17.5); Lymphocytes # (Auto) 1.77 K/mcL (1.50-4.80); Lymphocytes % (Auto) 24.1 % (15.5-49.0); Mean Cell Volume 89.1 fL (80.0-100.0); Mean Corpuscular HGB Conc 32.8 g/dL (31.0-36.0); Mean Platelet Volume 9.3 fL (8.8-12.5); Monocytes # (Auto) 0.75 K/mcL (0.10-0.90); Monocytes % (Auto) 10.2 % (1.0-12.0); Platelet Count 222 K/mcL (140-440); RBC 4.49 M/mcL (4.63-6.08); WBC 7.4 K/mcL (4.5-11.0)
[2024-02-15 06:20] LABS: ALT/SGPT 6 U/L (<40); AST/SGOT 12 U/L (<40); Albumin 3.6 gm/dL (3.2-5.2); Albumin/Globulin Ratio 1.4 (1.0-2.3); Alkaline Phosphatase 65 U/L (39-117); Bilirubin,Direct < 0.2 mg/dL (0-0.3); Bilirubin,Total 0.4 mg/dL (0.1-1.0); Blood Urea Nitrogen 16 mg/dL (8-23); Calcium 8.7 mg/dL (8.6-10.4); Carbon Dioxide 21 mmol/L (22-30); Chloride 104 mmol/L (96-108); Globulin 2.5 gm/dL (2.2-3.7); Glomerular Filtration Rate 99; Glucose 115 mg/dL (70-105); Lactate Dehydrogenase 81 U/L (135-225); Phosphorous 2.6 mg/dL (2.5-4.5); Potassium 3.9 mmol/L (3.3-5.1); Sodium 138 mmol/L (133-145); Triglycerides 236 mg/dL (<150); Uric Acid 5.1 mg/dL (2.5-8.0)
[2024-02-15] MEDS: AZITHROMYCIN 250 MG TABLET PO SCH (08:37)
[2024-02-17 15:08] LABS: Opiate Screen Positive ng/mL (Cutoff=300)
== END 2024-02-15 13:35 | disposition home health service (06) ==
LOC: ED 03:21 → ICU 13:03 → INTOOBSV 13:03
PROVIDERS: ADMIT Internal Medicine; ATTEND Internal Medicine

== ENCOUNTER 2024-10-16 21:48 | Inpatient (IN) ==
[2024-10-16] MEDS: MAGNESIUM SULFATE 2 GM/50 ML BAG IV ONE (22:16)
[2024-10-16 22:31] LABS: Basophils # (Auto) 0.06 K/mcL (0.00-0.30); Basophils % (Auto) 0.6 % (0.0-2.0); Eosinophils # (Auto) 0.57 K/mcL (0.00-0.70); Eosinophils % (Auto) 5.4 % (0.0-7.0); Hematocrit 39.9 % (40.1-51.0); Hemoglobin 12.4 g/dL (13.7-17.5); Lymphocytes # (Auto) 3.01 K/mcL (1.50-4.80); Lymphocytes % (Auto) 28.7 % (15.5-49.0); Mean Cell Volume 91.9 fL (80.0-100.0); Mean Corpuscular HGB Conc 31.1 g/dL (31.0-36.0); Mean Platelet Volume 9.9 fL (8.8-12.5); Monocytes # (Auto) 1.12 K/mcL (0.10-0.90); Monocytes % (Auto) 10.7 % (1.0-12.0); Neutrophils % (Auto) 54.4 % (38.0-78.0); Platelet Count 238 K/mcL (140-440); RBC 4.34 M/mcL (4.63-6.08); Red Cell Distribution Width 14.4 % (11.5-14.5); WBC 10.5 K/mcL (4.5-11.0)
[2024-10-16 22:41] LABS: Prothrombin Time 13.6 sec (11.9-14.5)
[2024-10-16 22:51] LABS: ALT/SGPT 11 U/L (<40); AST/SGOT 12 U/L (<40); Albumin 4.3 gm/dL (3.2-5.2); Albumin/Globulin Ratio 1.5 (1.0-2.3); Alkaline Phosphatase 96 U/L (39-117); Bilirubin,Total 0.2 mg/dL (0.1-1.0); Blood Urea Nitrogen 28 mg/dL (8-23); Calcium 9.3 mg/dL (8.6-10.4); Carbon Dioxide 29 mmol/L (22-30); Chloride 104 mmol/L (96-108); Globulin 2.8 gm/dL (2.2-3.7); Glomerular Filtration Rate 65; Glucose 170 mg/dL (70-105); Potassium 4.8 mmol/L (3.3-5.1); Sodium 143 mmol/L (133-145)
[2024-10-17] MEDS ORDERED: ONDANSETRON 4 MG/2 ML VIAL IV PRN ×2 (01:03→08:31)
[2024-10-17] MEDS ORDERED: DEXTROSE 31 GM ORAL.SUSP PO PRN ×3 (01:03→15:18)
[2024-10-17] MEDS ORDERED: DEXTROSE 50% 50 ML VIAL IV PRN ×3 (01:03→15:18)
[2024-10-17] MEDS: methylPREDNISolone SOD SUCC 125 MG/2 ML VIAL IV SCH (05:22)
[2024-10-17] MEDS: IPRATROPIUM/ALBUTEROL 3 ML AMPUL.NEB NEB PRN (06:29)
[2024-10-17] MEDS: INSULIN LISPRO 1 UNIT/0.01 ML UNIT SQ SCH ×3 (08:14→16:21)
[2024-10-17] MEDS ORDERED: DOCUSATE SODIUM 100 MG CAPSULE PO PRN (08:27)
[2024-10-17] MEDS ORDERED: PHENYLEPH PRAMOXIN GLYCR W PET PR PRN (08:27)
[2024-10-17] MEDS ORDERED: NON FORMULARY MEDICATION 1 DOSE MISCELL (Acetaminophen 325 mg capsule) PO PRN (08:27)
[2024-10-17] MEDS ORDERED: ACETAMINOPHEN 325 MG TABLET PO PRN (08:31)
[2024-10-17] MEDS ORDERED: LACTULOSE 20 GM/30 ML ORAL.SOL PO PRN (08:31)
[2024-10-17] MEDS ORDERED: MIDODRINE 5 MG TABLET PO PRN (08:52)
[2024-10-17] MEDS ORDERED: ALBUTEROL SULFATE 60 PUFF INHALER INH PRN ×2 (08:53→15:18)
[2024-10-17] MEDS: Diclofenac Sodium 1 % gel TOPICAL SCH (10:26)
[2024-10-17] MEDS: FLUTICASONE/SALMETEROL 250/50 INHALER #14 INH SCH (10:26)
[2024-10-17] MEDS: guaiFENesin/DEXTROMETHORPHAN 5ML UD CUP PO PRN (10:31)
[2024-10-17] MEDS: FINASTERIDE 5 MG TABLET PO SCH (10:32)
[2024-10-17] MEDS: PARoxetine 20 MG TABLET PO SCH (10:32)
[2024-10-17] MEDS: buPROPion 150 MG TAB.XL.24H PO SCH (10:32)
[2024-10-17] MEDS: IPRATROPIUM/ALBUTEROL 3 ML AMPUL.NEB NEB SCH (10:32)
[2024-10-17] MEDS: ENOXAPARIN 40 MG/0.4 ML SYRINGE SQ SCH (10:32)
[2024-10-17] MEDS: AZITHROMYCIN 250 MG TABLET PO SCH (10:32)
[2024-10-17] MEDS: hydrOXYzine 25 MG TABLET PO PRN (10:33)
[2024-10-17] MEDS: predniSONE 20 MG TABLET PO SCH (10:33)
[2024-10-17] MEDS: DOCUSATE SODIUM 100 MG CAPSULE PO SCH (10:34)
[2024-10-17] MEDS: 0.9 % SODIUM CHLORIDE 10 ML SYRINGE IV SCH (12:26)
[2024-10-17] MEDS: GABAPENTIN 300 MG CAPSULE PO SCH (16:12)
[2024-10-17] MEDS: morphine 4 MG/ML VIAL IV PRN (17:06)
[2024-10-17] MEDS: NICOTINE 21 MG PATCH TOPICAL ONE (20:32)
[2024-10-17] MEDS: PRIMIDONE 50 MG TABLET PO SCH (20:33)
[2024-10-17] MEDS: MELATONIN 3 MG TABLET PO SCH (20:34)
[2024-10-17] MEDS: ATORVASTATIN 20 MG TABLET PO SCH (20:35)
[2024-10-17] MEDS: traZODone HCL 100 MG TABLET PO SCH (20:35)
[2024-10-17] MEDS: INSULIN GLARGINE, HUMAN 1 UNIT/0.01 ML SQ SCH (20:35)
[2024-10-17] MEDS: TAMSULOSIN 0.4 MG CAPSULE PO SCH (20:35)
[2024-10-17] MEDS: NICOTINE 21 MG PATCH TOPICAL SCH (20:53)
[2024-10-17] MEDS ORDERED: INSULIN GLARGINE, HUMAN 1 UNIT/0.01 ML SQ SCH (21:00)
[2024-10-18 06:11] LABS: Basophils # (Auto) 0.02 K/mcL (0.00-0.30); Basophils % (Auto) 0.1 % (0.0-2.0); Eosinophils # (Auto) 0.05 K/mcL (0.00-0.70); Eosinophils % (Auto) 0.4 % (0.0-7.0); Hematocrit 36.4 % (40.1-51.0); Hemoglobin 11.7 g/dL (13.7-17.5); Lymphocytes # (Auto) 1.43 K/mcL (1.50-4.80); Lymphocytes % (Auto) 10.6 % (15.5-49.0); Mean Cell Volume 89.2 fL (80.0-100.0); Mean Corpuscular HGB Conc 32.1 g/dL (31.0-36.0); Mean Platelet Volume 10.2 fL (8.8-12.5); Monocytes % (Auto) 8.9 % (1.0-12.0); Neutrophils % (Auto) 79.7 % (38.0-78.0); Platelet Count 239 K/mcL (140-440); RBC 4.08 M/mcL (4.63-6.08); Red Cell Distribution Width 14.1 % (11.5-14.5); WBC 13.5 K/mcL (4.5-11.0)
[2024-10-18 06:20] LABS: ALT/SGPT 9 U/L (<40); AST/SGOT 11 U/L (<40); Albumin 3.9 gm/dL (3.2-5.2); Albumin/Globulin Ratio 1.6 (1.0-2.3); Alkaline Phosphatase 80 U/L (39-117); Bilirubin,Total < 0.2 mg/dL (0.1-1.0); Blood Urea Nitrogen 39 mg/dL (8-23); Calcium 8.9 mg/dL (8.6-10.4); Carbon Dioxide 29 mmol/L (22-30); Chloride 102 mmol/L (96-108); Globulin 2.4 gm/dL (2.2-3.7); Glomerular Filtration Rate 83; Glucose 202 mg/dL (70-105); Potassium 4.4 mmol/L (3.3-5.1); Sodium 139 mmol/L (133-145)
[2024-10-18 07:10] LABS: Estimated Average Glucose(eAG) 194 mg/dL; Hemoglobin A1C 8.4 % Hgb (4.0-6.0)
[2024-10-18] MEDS: OMEPRAZOLE 20 MG CAPSULE PO SCH (07:32)
[2024-10-18] MEDS: ALENDRONATE SODIUM 70 MG TABLET PO SCH (07:32)
[2024-10-18] MEDS: ASPIRIN 81 MG TAB.CHEW PO SCH (08:39)
[2024-10-18] MEDS: LACTASE 1 TABLET PO SCH (08:39)
[2024-10-18] MEDS: BUPRENORPHINE TOPICAL SCH (08:42)
[2024-10-18] MEDS: Umeclidinium [Incruse Ellipta] 62.5 mcg/actuation Inhaler INH SCH (08:44)
[2024-10-18] MEDS: NICOTINE 21 MG PATCH TOPICAL SCH (09:19)
[2024-10-18] MEDS: LIDOCAINE 4% TOP PATCH TOPICAL PRN (09:20)
[2024-10-18] MEDS: LIDOCAINE 4% TOP PATCH TOPICAL SCH (10:19)
[2024-10-19 05:52] LABS: Basophils # (Auto) 0.02 K/mcL (0.00-0.30); Basophils % (Auto) 0.2 % (0.0-2.0); Eosinophils # (Auto) 0.14 K/mcL (0.00-0.70); Eosinophils % (Auto) 1.3 % (0.0-7.0); Hematocrit 37.4 % (40.1-51.0); Hemoglobin 11.6 g/dL (13.7-17.5); Lymphocytes # (Auto) 1.95 K/mcL (1.50-4.80); Lymphocytes % (Auto) 18.3 % (15.5-49.0); Mean Cell Volume 90.6 fL (80.0-100.0); Mean Platelet Volume 9.9 fL (8.8-12.5); Monocytes # (Auto) 0.98 K/mcL (0.10-0.90); Monocytes % (Auto) 9.2 % (1.0-12.0); Neutrophils % (Auto) 70.6 % (38.0-78.0); Platelet Count 225 K/mcL (140-440); RBC 4.13 M/mcL (4.63-6.08); Red Cell Distribution Width 14.4 % (11.5-14.5); WBC 10.6 K/mcL (4.5-11.0)
[2024-10-19 06:26] LABS: ALT/SGPT 10 U/L (<40); AST/SGOT 10 U/L (<40); Albumin 3.9 gm/dL (3.2-5.2); Albumin/Globulin Ratio 1.8 (1.0-2.3); Alkaline Phosphatase 76 U/L (39-117); Bilirubin,Total < 0.2 mg/dL (0.1-1.0); Blood Urea Nitrogen 37 mg/dL (8-23); Calcium 8.9 mg/dL (8.6-10.4); Carbon Dioxide 29 mmol/L (22-30); Chloride 105 mmol/L (96-108); Globulin 2.2 gm/dL (2.2-3.7); Glomerular Filtration Rate 83; Glucose 164 mg/dL (70-105); Potassium 4.6 mmol/L (3.3-5.1); Sodium 143 mmol/L (133-145)
[2024-10-20 06:08] LABS: Basophils # (Auto) 0.04 K/mcL (0.00-0.30); Basophils % (Auto) 0.4 % (0.0-2.0); Eosinophils # (Auto) 0.41 K/mcL (0.00-0.70); Eosinophils % (Auto) 3.8 % (0.0-7.0); Hemoglobin 11.9 g/dL (13.7-17.5); Lymphocytes # (Auto) 2.21 K/mcL (1.50-4.80); Lymphocytes % (Auto) 20.7 % (15.5-49.0); Mean Cell Volume 90.9 fL (80.0-100.0); Mean Corpuscular HGB Conc 31.3 g/dL (31.0-36.0); Mean Platelet Volume 9.9 fL (8.8-12.5); Monocytes # (Auto) 1.13 K/mcL (0.10-0.90); Monocytes % (Auto) 10.6 % (1.0-12.0); Neutrophils % (Auto) 64.2 % (38.0-78.0); Platelet Count 212 K/mcL (140-440); RBC 4.18 M/mcL (4.63-6.08); Red Cell Distribution Width 14.2 % (11.5-14.5); WBC 10.7 K/mcL (4.5-11.0)
[2024-10-20 06:39] LABS: ALT/SGPT 11 U/L (<40); AST/SGOT 8 U/L (<40); Albumin/Globulin Ratio 1.7 (1.0-2.3); Alkaline Phosphatase 76 U/L (39-117); Bilirubin,Total 0.2 mg/dL (0.1-1.0); Blood Urea Nitrogen 34 mg/dL (8-23); Calcium 9.1 mg/dL (8.6-10.4); Carbon Dioxide 31 mmol/L (22-30); Chloride 103 mmol/L (96-108); Globulin 2.3 gm/dL (2.2-3.7); Glomerular Filtration Rate 83; Glucose 176 mg/dL (70-105); Potassium 4.4 mmol/L (3.3-5.1); Sodium 141 mmol/L (133-145)
[2024-10-20] MEDS: SENNOSIDES 1 TABLET PO PRN (21:56)
[2024-10-21 06:13] LABS: Basophils # (Auto) 0.04 K/mcL (0.00-0.30); Basophils % (Auto) 0.3 % (0.0-2.0); Eosinophils # (Auto) 0.71 K/mcL (0.00-0.70); Eosinophils % (Auto) 5.8 % (0.0-7.0); Hematocrit 37.8 % (40.1-51.0); Lymphocytes # (Auto) 2.65 K/mcL (1.50-4.80); Lymphocytes % (Auto) 21.7 % (15.5-49.0); Mean Corpuscular HGB Conc 31.7 g/dL (31.0-36.0); Mean Platelet Volume 9.9 fL (8.8-12.5); Monocytes # (Auto) 1.16 K/mcL (0.10-0.90); Monocytes % (Auto) 9.5 % (1.0-12.0); Neutrophils % (Auto) 62.3 % (38.0-78.0); Platelet Count 225 K/mcL (140-440); WBC 12.2 K/mcL (4.5-11.0)
[2024-10-21 06:26] LABS: ALT/SGPT 11 U/L (<40); AST/SGOT 8 U/L (<40); Albumin 3.9 gm/dL (3.2-5.2); Albumin/Globulin Ratio 1.7 (1.0-2.3); Alkaline Phosphatase 79 U/L (39-117); Bilirubin,Total 0.2 mg/dL (0.1-1.0); Blood Urea Nitrogen 31 mg/dL (8-23); Calcium 9.1 mg/dL (8.6-10.4); Carbon Dioxide 31 mmol/L (22-30); Chloride 103 mmol/L (96-108); Globulin 2.3 gm/dL (2.2-3.7); Glomerular Filtration Rate 83; Glucose 180 mg/dL (70-105); Potassium 4.1 mmol/L (3.3-5.1); Sodium 140 mmol/L (133-145)
[2024-10-22 06:44] LABS: ALT/SGPT 12 U/L (<40); AST/SGOT 8 U/L (<40); Albumin 3.8 gm/dL (3.2-5.2); Albumin/Globulin Ratio 1.7 (1.0-2.3); Alkaline Phosphatase 77 U/L (39-117); Bilirubin,Total < 0.2 mg/dL (0.1-1.0); Blood Urea Nitrogen 36 mg/dL (8-23); Calcium 9.1 mg/dL (8.6-10.4); Carbon Dioxide 29 mmol/L (22-30); Chloride 102 mmol/L (96-108); Globulin 2.3 gm/dL (2.2-3.7); Glomerular Filtration Rate 83; Glucose 247 mg/dL (70-105); Potassium 4.2 mmol/L (3.3-5.1); Sodium 140 mmol/L (133-145)
[2024-10-22 06:55] LABS: Basophils # (Auto) 0.05 K/mcL (0.00-0.30); Basophils % (Auto) 0.4 % (0.0-2.0); Eosinophils # (Auto) 0.78 K/mcL (0.00-0.70); Eosinophils % (Auto) 5.9 % (0.0-7.0); Hematocrit 37.3 % (40.1-51.0); Hemoglobin 11.9 g/dL (13.7-17.5); Lymphocytes # (Auto) 2.65 K/mcL (1.50-4.80); Lymphocytes % (Auto) 20.2 % (15.5-49.0); Mean Cell Volume 89.9 fL (80.0-100.0); Mean Corpuscular HGB Conc 31.9 g/dL (31.0-36.0); Mean Platelet Volume 10.3 fL (8.8-12.5); Monocytes # (Auto) 1.13 K/mcL (0.10-0.90); Monocytes % (Auto) 8.6 % (1.0-12.0); Neutrophils % (Auto) 64.3 % (38.0-78.0); Platelet Count 233 K/mcL (140-440); RBC 4.15 M/mcL (4.63-6.08); Red Cell Distribution Width 14.1 % (11.5-14.5); WBC 13.1 K/mcL (4.5-11.0)
[2024-10-23 06:32] LABS: Basophils # (Auto) 0.04 K/mcL (0.00-0.30); Basophils % (Auto) 0.4 % (0.0-2.0); Eosinophils # (Auto) 0.79 K/mcL (0.00-0.70); Hematocrit 37.9 % (40.1-51.0); Hemoglobin 11.7 g/dL (13.7-17.5); Lymphocytes # (Auto) 2.59 K/mcL (1.50-4.80); Mean Cell Volume 90.5 fL (80.0-100.0); Mean Corpuscular HGB Conc 30.9 g/dL (31.0-36.0); Mean Platelet Volume 10.2 fL (8.8-12.5); Monocytes # (Auto) 1.05 K/mcL (0.10-0.90); Monocytes % (Auto) 9.3 % (1.0-12.0); Neutrophils % (Auto) 59.8 % (38.0-78.0); Platelet Count 216 K/mcL (140-440); RBC 4.19 M/mcL (4.63-6.08); Red Cell Distribution Width 14.3 % (11.5-14.5); WBC 11.3 K/mcL (4.5-11.0)
[2024-10-23 07:17] LABS: Blood Urea Nitrogen 40 mg/dL (8-23); Calcium 8.6 mg/dL (8.6-10.4); Carbon Dioxide 29 mmol/L (22-30); Chloride 105 mmol/L (96-108); Glomerular Filtration Rate 65; Glucose 197 mg/dL (70-105); Potassium 4.3 mmol/L (3.3-5.1); Sodium 141 mmol/L (133-145)
[2024-10-23 12:36] LABS: C-Reactive Protein 4.34 mg/dL (0.03-0.80)
[2024-10-23] MEDS: methylPREDNISolone SOD SUCC 125 MG/2 ML VIAL IV SCH (13:19)
[2024-10-23] MEDS: IPRATROPIUM/ALBUTEROL 3 ML AMPUL.NEB NEB SCH (17:14)
[2024-10-24 06:22] LABS: Basophils # (Auto) 0.02 K/mcL (0.00-0.30); Basophils % (Auto) 0.1 % (0.0-2.0); Eosinophils # (Auto) 0.08 K/mcL (0.00-0.70); Eosinophils % (Auto) 0.5 % (0.0-7.0); Hematocrit 41.1 % (40.1-51.0); Hemoglobin 12.8 g/dL (13.7-17.5); Lymphocytes # (Auto) 1.32 K/mcL (1.50-4.80); Lymphocytes % (Auto) 8.8 % (15.5-49.0); Mean Cell Volume 90.7 fL (80.0-100.0); Mean Corpuscular HGB Conc 31.1 g/dL (31.0-36.0); Mean Platelet Volume 10.2 fL (8.8-12.5); Monocytes # (Auto) 1.15 K/mcL (0.10-0.90); Monocytes % (Auto) 7.7 % (1.0-12.0); Neutrophils % (Auto) 82.3 % (38.0-78.0); Platelet Count 234 K/mcL (140-440); RBC 4.53 M/mcL (4.63-6.08); WBC 14.9 K/mcL (4.5-11.0)
[2024-10-24 06:56] LABS: Blood Urea Nitrogen 40 mg/dL (8-23); Calcium 9.6 mg/dL (8.6-10.4); Carbon Dioxide 26 mmol/L (22-30); Chloride 105 mmol/L (96-108); Glomerular Filtration Rate 73; Glucose 227 mg/dL (70-105); Potassium 4.7 mmol/L (3.3-5.1); Sodium 143 mmol/L (133-145)
[2024-10-24] MEDS ORDERED: predniSONE 20 MG TABLET PO SCH (09:30)
[2024-10-24 11:24] VITALS: TEMP 97.1; O2SAT 98
[2024-10-25] MEDS ORDERED: predniSONE 20 MG TABLET PO SCH (07:30)
== END 2024-10-24 12:40 | DRG 190 ==
LOC: ED 21:48 → ICU 10-17 01:31 → MEDSUR 10-20 16:03
PROVIDERS: ADMIT Internal Medicine; ATTEND Student in an Organized Health Care Education/Training Program